=== PATIENT | female | born 1995 | race Caucasian/White ===

== ENCOUNTER 2018-03-16 22:26 | Inpatient (IN) ==
[2018-03-16] MEDS ORDERED: MOM Conc 10 ML UD.LIQ PO PRN (22:43)
[2018-03-16] MEDS ORDERED: Mag Hydrox/Al Hydrox/Simeth 30 ML UDC PO PRN (22:43)
[2018-03-16] MEDS ORDERED: *HR* LORazepam 2 MG/ML VIAL IM PRN (22:43)
[2018-03-16] MEDS ORDERED: Ibuprofen 400 MG TABLET PO PRN (22:43)
[2018-03-16] MEDS ORDERED: Haloperidol Lactate 5 MG/ML VIAL IM PRN (22:43)
[2018-03-16] MEDS ORDERED: traZODone 50 MG TABLET PO PRN (22:43)
[2018-03-16] MEDS ORDERED: *HR* LORazepam 1 MG TABLET PO PRN (22:43)
[2018-03-16] MEDS: hydrOXYzine pamoate 25 MG CAPSULE PO PRN (23:53)
[2018-03-17] MEDS: hydrOXYzine pamoate 25 MG CAPSULE PO PRN ×2 (12:13→20:29)
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
[2018-03-17] MEDS: Nicotine 2 MG GUM BC PRN (17:48)
[2018-03-17] MEDS: traZODone 50 MG TABLET PO SCH (20:29)
[2018-03-18] MEDS: traZODone 50 MG TABLET PO SCH ×2 (08:50→20:46)
--- NOTE | 2018-03-18 14:38 | Psychiatry Progress Note ---
Date of Encounter: 03/18/18 Time of Encounter: 14:15 Subjective Interval history: D the patient is a 22-year-old white female Chief complaint it has only been in day but I feel better. History of present illness. The patient came in with her son post manic stress disorder with plans to kill herself. The patient was able to tolerate 25 mg sertraline and 25 mg of trazodone she reports having good sleep last night. Her grandmother had come to visit her and reported that she was better the patient's response was slowly been day the patient was able to read today and help a little tired and wanted to go to sleep. Nonetheless she did not report nausea vomiting other side effects associated with the current medicines and she agreed to an increase in medication for PTSD. Effects were discussed and the patient verbalizes understanding Review of Systems Psychiatric: Reports: depression, abnormal sleep pattern, suicidal ideation, irritability Results - Vital Signs Vital Signs: Temp Pulse Resp BP 98.2 F 80 18 111/80 03/18/18 09:00 03/18/18 09:00 03/18/18 09:00 03/18/18 09:00 Assessment and Plan (1) Chronic post-traumatic stress disorder Current visit: Yes Status: Acute Plan: Continue hospitalization, Close observation, Suicide Precautions per unit protocol, Encourage participation in unit milieu, Group Therapy Risks, benefits, side effects, alternatives discussed w/pt: Yes Patient agreeable to treatment: Yes (2) Suicidal ideations Current visit: Yes Status: Acute Plan: Suicide Precautions per unit protocol, Encourage participation in unit milieu, Secure weapons, Family/Supportive other meeting Risks, benefits, side effects, alternatives discussed w/pt: Yes Patient agreeable to treatment: Yes Consult Discharge Plan - Plan Referrals: [facility] [Outside] - 04/23/18 10:15 am (The above appointment is with Dr. Aguirre for outpatient psychiatric assessment and medication management services. Please arrive 10 minutes early to complete the check-in process. Please bring your insurance card and photo ID. If you are unable to keep this appointment, 24 hour business notice of cancellation is expected. If you miss your new patient appointment with any provider without providing appropriate notice, you cannot be re-scheduled for that service. The above appointment(s) reflects first availability. You may contact the office regularly to check for cancellations that may allow you to be seen sooner. The [facility] is the 1st building behind [facility] in [place], [place]. Please do not use GPS or mapping apps to locate the office, as they will take you to the wrong location. ) Latrice Yousif [facility] [Outside] (The above appointment is with . When you come to your first appointment, you will be completing paperwork, meeting with a counselor, and developing a treatment plan. You will receive follow- up appointments for on-going services, which could include community support, mental health and substance abuse counseling, groups/partial hospitalization programming, medication assisted treatment, and psychiatric medication management (6-8 week wait). Please bring the following with you to your first visit to the clinic: 1) proof of household income (two consecutive pay stubs, social security award letter, bank statement, statement letter from [facility], child support statement, IRS 1040 or W2 form, or a statement from the person who financially supports you stating they help provide for your basic needs), 2 ) proof of residency (drivers license, a piece of mail showing your address, a statement from person you live with verifying you live at their address), 3) photo ID, 4) your insurance card (if you have commercial insurance you must call to obtain a prior authorization number before you arrive to your first appointment) and 5) if you do not have insurance but have applied for Medicaid, please bring verification you have applied. The above appointment(s) reflects first availability. You may contact the office regularly to check for cancellations that may allow you to be seen sooner.) Psychiatry Exam - Constitutional Vitals: Temp Pulse Resp BP 98.2 F 80 18 111/80 03/18/18 09:00 03/18/18 09:00 03/18/18 09:00 03/18/18 09:00 General appearance: age & developmentally appropriate, well-groomed, well- nourished - Musculoskeletal Gait: normal Station: relaxed Strength & Tone: normal for patient - Psychiatric Patient Orientation: Yes Person, Yes Time, Yes Place Level of alertness: Sedated Behavior: calm, cooperative Psychomotor activity: Normal Eye Contact: Maintains Eye Contact Mood Description: Depressed Affect description: full range, dysphoric Speech Volume: Normal Speech pattern: normal rate, normal rhythm, normal tone, fluent, spontaneous Language & Vocabulary: consistent with education Thought Process: Linear, Goal Oriented Thought Content: No Suicidal ideation, No Homicidal ideation, No Overt delusions Perceptual Disturbances: No Auditory hallucinations, No Visual hallucinations Attention Span Ability: Capable of Focused Attention Memory Description: Grossly Intact Patient Reliability: Reliable Historian Fund of knowledge: Yes abstraction ability, Yes aware of current events Intelligence Estimate: Average Judgment: Limited Insight: Minimal
[2018-03-18] MEDS: hydrOXYzine pamoate 25 MG CAPSULE PO PRN (20:47)
[2018-03-19] MEDS: hydrOXYzine pamoate 25 MG CAPSULE PO PRN ×2 (11:07→17:30)
[2018-03-19] MEDS: Nicotine 2 MG GUM BC PRN ×2 (12:24→16:08)
--- NOTE | 2018-03-19 12:54 | Psychiatry Progress Note ---
Date of Encounter: 03/19/18 Time of Encounter: 12:45 Subjective Interval history: ID: The patient is a 22-year-old single white female. Chief complaint I still have impulses to kill myself. It is like when something bad happens I think about the History of present illness: The patient has developed significant suicidal ideation the past. Currently she is having impulses and suicidal ideation. She has been concerned about her grandmother. Her grandmother's birthday is tomorrow. The patient has been able to tolerate the trazodone. She had difficulty falling to sleep but she had a relatively good night sleep. She reports dreams but not nightmares and not the significant threatening nature of the nightmares. The patient and I discussed the discharge follow-up plans and the appointments that she has. We discussed the side effects of the medicine sertraline and trazodone. Specifically we talked about GI side effects and other somatic side effects. The patient was also advised not to become while taking antidepressant medicines. Or to discuss any plans to have children with her provider before coming . The patient verbalized understanding. Patient wishes to continue her career options and possibly return to gainful employment. Overall mood is improved anxiety is present suicidal ideation and a foreshortened sense of the future remain core features of posttraumatic stress disorder. Review of Systems Psychiatric: Reports: depression, abnormal sleep pattern, suicidal ideation, irritability Results - Vital Signs Vital Signs: Temp Pulse Resp BP 97.8 F 80 16 117/85 03/19/18 09:00 03/19/18 09:00 03/19/18 09:00 03/19/18 09:00 Assessment and Plan (1) Chronic post-traumatic stress disorder Current visit: Yes Status: Acute Plan: Continue hospitalization, Close observation, Suicide Precautions per unit protocol, Encourage participation in unit milieu, Group Therapy, Monitor sleep, Monitor appetite, Secure weapons, Family/Supportive other meeting Risks, benefits, side effects, alternatives discussed w/pt: Yes Patient agreeable to treatment: Yes (2) Suicidal ideations Current visit: Yes Status: Acute Plan: Continue hospitalization, Suicide Precautions per unit protocol, Secure weapons Risks, benefits, side effects, alternatives discussed w/pt: Yes Patient agreeable to treatment: Yes Consult Discharge Plan - Plan Referrals: [facility] [Outside] - 04/23/18 10:15 am (The above appointment is with Dr. Aguirre for outpatient psychiatric assessment and medication management services. Please arrive 10 minutes early to complete the check-in process. Please bring your insurance card and photo ID. If you are unable to keep this appointment, 24 hour business notice of cancellation is expected. If you miss your new patient appointment with any provider without providing appropriate notice, you cannot be re-scheduled for that service. The above appointment(s) reflects first availability. You may contact the office regularly to check for cancellations that may allow you to be seen sooner. The [facility] is the [facility] in [place], [place]. Please do not use GPS or mapping apps to locate the office, as they will take you to the wrong location. ) [facility] [Outside] - 04/02/18 8:30 am (The above appointment is with Ronna Vidal. When you come to your first appointment, you will be completing paperwork, meeting with a counselor, and developing a treatment plan. You will receive follow- up appointments for on-going services , which could include community support, mental health and substance abuse counseling and groups/partial hospitalization programming. Please bring the following with you to your first visit to the clinic: 1) proof of household income (two consecutive pay stubs, social security award letter, bank statement , statement letter from [facility], child support statement, IRS 1040 or W2 form, or a statement from the person who financially supports you stating they help provide for your basic needs), 2) proof of residency (drivers license, a piece of mail showing your address, a statement from person you live with verifying you live at their address), 3) photo ID, 4) your insurance card (if you have commercial insurance you must call to obtain a prior authorization number before you arrive to your first appointment) and 5) if you do not have insurance but have applied for Medicaid, please bring verification you have applied. The above appointment(s) reflects first availability. You may contact the office regularly to check for cancellations that may allow you to be seen sooner.) Psychiatry Exam - Constitutional Vitals: Temp Pulse Resp BP 97.8 F 80 16 117/85 03/19/18 09:00 03/19/18 09:00 03/19/18 09:00 03/19/18 09:00 General appearance: age & developmentally appropriate, well-groomed, well- nourished - Musculoskeletal Gait: normal Station: relaxed Strength & Tone: normal for patient - Psychiatric Patient Orientation: Yes Person, Yes Time, Yes Place Level of alertness: Alert Behavior: calm, cooperative Psychomotor activity: Normal Eye Contact: Maintains Eye Contact Mood Description: Depressed Affect description: congruent with mood, full range Speech Volume: Normal Speech pattern: normal rate, normal rhythm, normal tone, fluent, spontaneous Language & Vocabulary: consistent with education Thought Process: Linear, Goal Oriented Thought Content: Yes Suicidal ideation, No Homicidal ideation, No Overt delusions Perceptual Disturbances: No Auditory hallucinations, No Visual hallucinations Attention Span Ability: Capable of Focused Attention Memory Description: Grossly Intact Patient Reliability: Reliable Historian Fund of knowledge: Yes abstraction ability, Yes aware of current events Intelligence Estimate: Average Judgment: Fair Insight: Partial
[2018-03-19] MEDS: traZODone 50 MG TABLET PO SCH (20:37)
[2018-03-20 10:16] VITALS: BP 113/77
--- NOTE | 2018-03-20 11:11 | Discharge Summary ---
Date of Encounter: 03/20/18 Time of Encounter: 11:00 Diagnosis - Discharge Diagnosis (1) Chronic post-traumatic stress disorder Priority: Primary Status: Acute (2) Suicidal ideations Priority: Secondary Status: Resolved Medications - Discharge Medications Prescriptions: Sertraline [Zoloft] 50 mg PO DAILY 40 Days #40 tablet traZODone [TraZODone] 50 mg PO HS 40 Days #40 tablet Sertraline [Zoloft] 50 mg PO DAILY 40 Days #40 tablet 03/20/18 [Rx] traZODone [TraZODone] 50 mg PO HS 40 Days #40 tablet 03/20/18 [Rx] 3 Allergy/AdvReac Type Severity Reaction Status Date / Time No Known Allergies Allergy Verified 03/16/18 22:29 Provider Date of admission: 03/16/18 22:26 Primary care physician: PCP NONE Discharging clinician: [facility] Exam - Constitutional Vitals: Temp Pulse Resp BP 99 F 101 16 113/77 03/20/18 09:00 03/20/18 09:00 03/20/18 09:00 03/20/18 09:00 General appearance: age & developmentally appropriate, well-groomed, well- nourished - Musculoskeletal Gait: normal Station: relaxed Strength & Tone: normal for patient - Psychiatric Patient Orientation: Yes Person, Yes Time, Yes Place Level of alertness: Alert Behavior: calm, cooperative Psychomotor activity: Normal Eye Contact: Maintains Eye Contact Mood Description: Euthymic/stable Affect description: congruent with mood, full range Speech Volume: Normal Speech pattern: normal rate, normal rhythm, normal tone, fluent, spontaneous Language & Vocabulary: consistent with education Thought Process: Linear, Goal Oriented Thought Content: No Suicidal ideation, No Homicidal ideation, No Overt delusions Perceptual Disturbances: No Auditory hallucinations, No Visual hallucinations Attention Span Ability: Capable of Focused Attention Memory Description: Grossly Intact Patient Reliability: Reliable Historian Fund of knowledge: Yes abstraction ability, Yes aware of current events Intelligence Estimate: Average Judgment: Good Insight: Full Hospital Course Hospital course: Ms. Velásquez is a 22 year old female CC: I am better now. HPI: The patient is doing betters. She was admitted with SI and plan to kill herself. She remained on Suicide precautions. She has been depressed and related PTSD to events in 2017. She had several deaths in the family. She partiicapted in groups and ga activities. She tolerated gradual titration in sertraline and Trazodone. She had improved mood and Si resolved ont he day of discharge. She has no side effects, and was advised to discuss treatment. She was advised not to attempt to become while taking the medication. She was advised to remain on meds for the next year and discuss duration of treatment of treatment. she had a safety plan. Does patient wish to continue nicotine replacement upon disc: No - Time Spent with Patient Total time spent providing and/or coordinating discharge services: Less than 30 minutes Assessment and Plan - Patient/Caregiver Discharge Instructions Activity: resume usual activities as tolerated Diet: regular diet Additional Instructions: avoid alcohol and drugs of abuse - Follow up Plan Follow up with: [facility] [Outside] - 04/23/18 10:15 am (The above appointment is with Dr. Aguirre for outpatient psychiatric assessment and medication management services. Please arrive 10 minutes early to complete the check-in process. Please bring your insurance card and photo ID. If you are unable to keep this appointment, 24 hour business notice of cancellation is expected. If you miss your new patient appointment with any provider without providing appropriate notice, you cannot be re-scheduled for that service. The above appointment(s) reflects first availability. You may contact the office regularly to check for cancellations that may allow you to be seen sooner. The [facility] is the 1st building behind [facility] in [place], [place]. Please do not use GPS or mapping apps to locate the office, as they will take you to the wrong location. ) [facility] [Outside] - 04/02/18 8:30 am (The above appointment is with Ronna Vidal. When you come to your first appointment, you will be completing paperwork, meeting with a counselor, and developing a treatment plan. You will receive follow- up appointments for on-going services , which could include community support, mental health and substance abuse counseling and groups/partial hospitalization programming. Please bring the following with you to your first visit to the clinic: 1) proof of household income (two consecutive pay stubs, social security award letter, bank statement , [facility], child support statement, IRS 1040 or W2 form, or a statement from the person who financially supports you stating they help provide for your basic needs), 2) proof of residency (drivers license, a piece of mail showing your address, a statement from person you live with verifying you live at their address), 3) photo ID, 4) your insurance card (if you have commercial insurance you must call to obtain a prior authorization number before you arrive to your first appointment) and 5) if you do not have insurance but have applied for Medicaid, please bring verification you have applied. The above appointment(s) reflects first availability. You may contact the office regularly to check for cancellations that may allow you to be seen sooner.) Overall status at discharge: Stable Disposition: Home, Self-Care Quality - Multiple Antipsychotics Patient discharged on 2 or more antipsychotic medications: No Procedures - Procedures Procedures: Medication Management, Crisis Stabilization, Supportive Therapy, Group Therapy, Psychoeducational Therapy
== END 2018-03-20 12:30 | disposition home or self-care (01) | DRG 882 ==
LOC: 1ANU 22:26
PROVIDERS: ADMIT Psychiatry & Neurology Forensic Psychiatry; ATTEND Psychiatry & Neurology Forensic Psychiatry